=== PATIENT | male | born 1980 | race Caucasian/White ===

== ENCOUNTER 2016-08-17 01:00 | Emergency (ER) | payer SELFPAY ==
[~2016-08-17 01:00] MED LIST: FLEXERIL10 MG PO; IBUPROFEN400 MG; IBUPROFEN800 MG PO; LIDODERM30 EA TOP; NO MEDICATIONS; VICODIN 5/1 TAB 5/50 PO
== END 2016-08-17 01:30 | disposition home or self-care (01) ==
LOC: SED 01:00
DX: G56.32 Lesion of radial nerve, left upper limb (principal); Z88.8 Allergy status to other drugs, medicaments and biological substances
CPT/HCPCS: 29125; 99283